=== PATIENT | male | born 1975 | race Caucasian/White ===

== ENCOUNTER 2022-01-20 01:46 | Outpatient (CLI) | payer MEDICAID, SELFPAY ==
--- NOTE | 2022-01-20 06:45 | DI.CT_ITS ---
Exam(s) CT CHEST WO EXAM: CT CHEST WO CLINICAL HISTORY: f/u pulmonary nodules,r91.8. TECHNIQUE: Multi planar reconstructions were performed. CONTRAST MATERIAL: None COMPARISON: CT CT CHEST WO CONTRAST from 09/02/2019performed at [facility] FINDINGS: CHEST: LUNGS: In the right lung the previously described subpleural peripherally partially calcified nodular density remains unchanged. There are no new right lung focal findings nor pleural effusion. In the opposite-left lung previously described peripheral small nodule in the anterior basal segment of the left lower lobe is also unchanged. There are no new focal left lung nodules. No infiltrates. No pleural effusions. MEDIASTINUM: There is no obvious hilar nor mediastinal adenopathy. Visualized thyroid unremarkable.A few shotty axillary lymph nodes are again noted, largest measuring 9 millimeters x 9 millimeters in t he left axilla, unchanged. No gross lymphadenopathy. CARDIAC: Heart size is normal. There is no pericardial effusion.Caliber of the thoracic aorta is wit hin normal limits. VISUALIZED UPPER ABDOMEN:Somewhat atrophic appearing left kidney which contains multiple calculi. Ple ase note that only part of the left kidney is included in the field of view. There may be mild hydron ephrosis of this kidney. No obvious abnormality in the partially visualized right kidney. Small nodul ar densities are again noted at the genu of both adrenal glands, unchanged and probably adenomas. OSSEOUS: No significant osseous lesions.. IMPRESSION: 1. Stable appearance of the previously described 2 nodules, 1 in each lung. No new nodule in either l saulo field and no pleural effusions nor intrathoracic adenopathy. 2. Atrophic appearing (partially included) left kidney which contains multiple calculi. The infundibu lum of this kidney as well as the renal pelvis appear prominent therefore cannot exclude the possibly that there is a calculus in the left ureter. The partially included opposite-right kidney does not c ontain calculi. 3. Small bilateral adrenal nodules again noted. These are probably adenomas. RADIATION DOSE DELIVERED: 432.1mGy.cm Total DLP DATA REPOSITORY: All CT scans at this facility are submitted to the National Radiology Data Registry (NRDR) Dose Index Registry (DIR) with the [employer] ([employer]). RADIATION OPTIMIZATION: All CT scans at this facility use at least one of these dose optimization te chniques: automated exposure control; mA and/or kV adjustment per patient size (includes targeted exa ms where dose is matched to clinical indication); or iterative reconstruction.
== END 2022-01-20 02:06 ==
PROVIDERS: PCP Physician Assistant Medical; Visit Provider Student in an Organized Health Care Education/Training Program
DX: R91.8 Other nonspecific abnormal finding of lung field (principal); N20.0 Calculus of kidney
CPT/HCPCS: 71250

== ENCOUNTER → 2022-04-21 15:13 | Outpatient (CLI) | payer MEDICAID, SELFPAY ==
--- OUTSIDE RECORDS SUMMARY | 2022-04-21 15:15 | XMS_ITS ---
:1975 Author Care Team Providers Name Role Phone KRISTA VAZ Primary Care Provider [phone] Allergies Code Code System Name Reaction Severity Status Onset NKDA ? Medications Name Status Start Date Stop Date ? ? amoxicillin 875 mg-potassium clavulanate 125 mg tablet Completed ? 02/27/2022 Take 1 tablet every 12 hours by oral route for 7 days. azithromycin 250 mg tablet Completed ? 04/18 TAKE 2 TABLETS (500 MG) BY ORAL ROUTE O NCE DAILY FOR 1 DAY THEN 1 TABLET (250 MG) BY ORAL ROUTE ONCE DAILY FOR 4 DAYS Antibiotic for bronchitis benzonatate 200 mg capsule Completed ? 12/05 Take 1 capsule 3 times a day by oral route as directed for 5 da ys. meloxicam 15 mg tablet Completed ? 2 Take 1 tablet every day by oral route as needed for 30 days. For shoulder pain. Do not take with ibuprofen or other NSAID. omeprazole 40 mg capsule,delayed release Active ? Not available Take 1 capsule every day by oral route as needed for 30 days. Acid reflux prednisone 10 mg tablet Completed ? 04/18/20 21 Take 5 tablets day 1, 4 tabs day 2, 3 tabs day 3, 2 tabs day 4, 1 tab day 5. Steroid for asthma exacerbation ProAir HFA 90 mcg/actuation aerosol inhaler Active ? Not available Inhale 2 puffs every 4-6 hours by inhalation route as directed for 30 days. Rescue inhaler Symbicort 160 mcg-4.5 mcg/actuation HFA aerosol inhaler Active ? Not available Inhale 1 puff twice a day by inhalation route for 30 days. Zyrtec 10 mg tablet Active ? Not availabl e Take 1 tablet every day by oral route. Problems Name Status Onset Date Source ? Dizziness Unknown 01/29/2019 ? Multiple Nodules of Lung Active 08/25/2019 ? Hemorrhoids Active 09/15/2019 ? Leukocytosis Unknown 05/28/2020 ? Leukopenia Active 06/04/2020 ? Prediabetes Active 06/04/2020 ? Pain of Right Shoulder Joint Active 04/18/2021 ? Gastroesophageal Reflux Disease without Esophagitis Active 03/08/2022 ? Early Satiety Active 03/08/2022 ? Abdominal Pain Active 03/08/2022 ? Muscular Dystrophy Active ? History Asthma Active ? History Unilateral Inguinal Hernia Active ? Histo ry Cholecystitis Unknown ? History Dilatation of Ureter Active ? History Right Upper Quadrant Pain Unknown ? Histor y Adult Health Examination Unknown ? History Radiology Result Abnormal Unknown ? Histor y Procedure by Method Unknown ? History SNOMED CT Concept Unknown ? History Procedures Date Name Performed by ? 01/15/2018 Cholecystectomy Information not avai lable Notes: laparascopic 11/12/1992 Foot Surgery Information not avai lable 06/12/2018 CT, Chest, W/o Contrast [facility] spital Radiology (Internal) [address] [place] [address] (Work Place) 08/26/2019 CT, Chest, [facility] [address] [place] [address] (Work Place) 04/27/2020 Electrocardiogram P_nc [facility] Ne [facility]port [address] [place] [address] (Work Place) 04/18/2021 XR, Shoulder, [address] [facility] Radiology (Internal) [address] [place] [address] (Work Place) 03/08/2022 NM, Gastric Emptying Scan Xray [facility] [address] [place], [place] [address] (Work Place) Results Lab Results Date Name Specimen Result Interpretation Description Value Range Status Address ? 01/20/2022 SARS CoV 2 RNA SWAB ? Covid-19 negative negativ e Final [facility] (COVID-19), RT-PCR Hospi toña Lab QL, occupational physician-PCR, [facility] (Int ernal): Respiratory Result [address] Spec[address] Zaire Ibanez ort ? ? SWAB ? Performing sammy ? Final [facility] Lab [address] [facility] [address] ab [facility] lab (Visitor Services Technician al): [address] 12/14/2021 Noninvasive Stool ? Cologuard negative negative Final Exact Colorectal Result Scienc es Cancer DNA + Reportable Laboratories Occult Blood (Col oguard Screening, QL, Or ders Only): Stool [address] , [place] 12/05/2021 CBC W/ Auto BLD Low Wbc 4.8 5.0-10.0 Final [facility] Diff 10*3/uL 10*3/uL Hospital Lab (Internal) : [address] ? ? BLD ? Rbc 5.03 4.60-6.00 Final [facility] ountry 10*6/uL 10*6/uL Hospital Lab (Internal) : [address] ? ? BLD ? Hgb 15.8 g/dL 14.0-18.0 Final [place] g/dL Hospital L ab (Internal) : [address] ? ? BLD ? Hct 46.1 % 41.0-51.0 Final [facility] Hospital L ab (Internal) : [address] ? ? BLD ? Mcv 91.7 fL 80.0-96.0 Final [facility] fL Hospital L ab (Internal) : [address] ? ? BLD ? Mch 31.4 pg 26.0-32.0 Final [facility] pg Hospital L ab (Internal) : [address], [place] ? ? BLD ? Mchc 34.3 g/dL 31.0-35.0 Final [facility] Country g/dL Hospital L ab (Internal) : [address] ? ? BLD ? Rdw 11.9 % 11.5-14.5 Final [facility] ount % Hospital L ab (Internal) : [address] ? ? BLD ? Plt 195 130-450 Final [facility] ntry 10*3/uL 10*3/uL Hospital Lab (Internal) : [address] ? ? BLD ? Anc 2.21 ? Final [facility] try 10*3/uL Hospital Lab (Internal) : [address] ? ? BLD ? Nlr 1.23 0.00-3.20 Final [facility] Hospital L ab (Internal) : [address] ? ? BLD ? Neutro 45.7 % 40.0-75.0 Final [facility] % Hospital L ab (Internal) : [address] ? ? BLD ? Lymph 37.0 % 20.0-50.0 Final [facility] Hospital L ab (Internal) : [address] ? ? BLD ? Boundary 9.7 % 2.0-10.0 % Final [facility] Hospital L ab (Internal) : [address] ? ? BLD High Eos 6.6 % 1.0-6.0 % Final [facility] L ab (Internal) : [address] ? ? BLD ? Baso 0.8 % 0.0-1.0 % Final [facility] L ab (Internal) : [address] ? ? BLD ? Ig 0.2 % 0.0-0.9 % Final [facility] Hospital L ab (Internal) : [address] 12/05/2021 CMP, Serum or S ? g/r 92 mg/dL 74-106 Winsome l [place] Plasma mg/dL Hospital L ab (Internal) : [address] ? ? S ? Bun 14 mg/dL 7-18 mg/dL Final [facility] L ab (Internal) : [address] ? ? S Low Crea 0.4 mg/dL 0.7-1.3 Final [place] mg/dL Hospital L ab (Internal) : [address] ? ? S ? Ca 9.5 mg/dL 8.5-10.1 Final [place] mg/dL Hospital L ab (Internal) : [address] ? ? S ? Na 141 136-145 Final [place] mmol/L mmol/L Hospital L ab (Internal) : [address] ? ? S ? K 4.4 3.5-5.1 Final [place] mmol/L mmol/L Hospital L ab (Internal) : [address] ? ? S ? Cl 103 98-107 Final [place] try mmol/l mmol/l Hospital L ab (Internal) : [address] ? ? S ? Tco2 31.6 21.0-32.0 Final [facility] ountry mmol/L mmol/L Hospital L ab (Internal) : [address] ? ? S ? Tp 7.3 g/dL 6.4-8.2 Final [facility] ountry g/dL Hospital L ab (Internal) : [address] ? ? S ? Alb 3.8 g/dL 3.4-5.0 Final [facility] ountry g/dL Hospital L ab (Internal) : [address] ? ? S ? Tbil 0.60 0.20-1.00 Final [facility] ount mg/dL mg/dL Hospital L ab (Internal) : [address] ? ? S ? Alp 98 U/L 50-136 U/L Final [facility] Hospital L ab (Internal) : [address] ? ? S ? Alt (Sgpt) 59 U/L 16-63 U/L [facility] Hospital L ab (Internal) : [address] ? ? S ? Ast (Sgot) 36 U/L 15-37 U/L [facility] Hospital L ab (Internal) : [address] 12/05/2021 Lipase, Serum S ? Lip 189 U/L 73-393 U/L F inal [facility] or Plasma Hospita l Lab (Internal) : [address] 12/05/2021 Urinalysis, UR ? UA-color yellow pale Final [facility] Dipstick, yellow Hospita l Lab Reflex Micro (Int ernal): [address] ? ? UR ? UA-appear clear clear Final [facility] Hospital L ab (Internal) : [address] ? ? UR ? UA-spec 1.020 1.003-1.03 Final [facility] Grav 5 Hospital L ab (Internal) : [address] ? ? UR ? UA-pH 6.5 [pH] 4.6-8.0 Final [facility] ount [pH] Hospital L ab (Internal) : [address] ? ? UR ? UA-leuk negative negative Final [facility] Hospital L ab (Internal) : [address] ? ? UR ? UA-nitrite negative negative Final N orth [facility] L ab (Internal) : [address] ? ? UR ? UA-prot negative negative Final [facility] L ab (Internal) : [address] ? ? UR ? UA-gluc negative negative Final [facility] L ab (Internal) : [address] ? ? UR ? UA-ketone negative negative Final No rth [facility] L ab (Internal) : [address] ? ? UR ? UA-urobil normal normal Final [facility] ab (Internal) : [address] ? ? UR ? UA-bili negative negative [facility] [address] ? ? UR ? UA-blood negative negative Final [facility] ab (Internal) : [address] 12/05/2021 HbA1C BLD ? Ha1C 4.9 % 4.0-6.0 % Final [facility] (Hemoglobin Hospi toña Lab a1C), Blood (Inte rnal): [address] 01/17/2021 SARS CoV 2 RNA SWAB ? Covid-19 negative negativ e Final [facility] (COVID-19), [facility] Hospi toña Lab QL, occupational physician-PCR, Result (Int ernal): Respiratory [address]t ? ? SWAB ? Performing panther ? Final Nort [facility] Lab [facility] lab Hospita l Lab (Internal) : [address] 06/08/2020 CBC W/ Auto BLD Low Wbc 4.1 5.0-10.0 Final [facility] Diff 10*3/uL 10*3/uL Hospital Lab (Internal) : [address] ? ? BLD ? Rbc 4.87 4.60-6.00 [facility] ountry 10*6/uL 10*6/uL Hospital Lab (Internal) : [address] ? ? BLD ? Hgb 16.0 g/dL 14.0-18.0 Final [facility] h Country g/dL Hospital L ab (Internal) : [address] ? ? BLD ? Hct 46.2 % 41.0-51.0 Final [facility] ount % Hospital L ab (Internal) : [address] ? ? BLD ? Mcv 94.9 fL 80.0-96.0 Final [facility] fL Hospital L ab (Internal) : [address] ? ? BLD High Mch 32.9 pg 26.0-32.0 Final [facility] pg Hospital L ab (Internal) : [address] ? ? BLD ? Mchc 34.6 g/dL 31.0-35.0 Final [facility] Country g/dL Hospital L ab (Internal) : [address] ? ? BLD ? Rdw 11.5 % 11.5-14.5 Final [facility] Hospital L ab (Internal) : [address] ? ? BLD ? Plt 182 130-450 Final [facility] ntry 10*3/uL 10*3/uL Hospital Lab (Internal) : [address] ? ? BLD ? Anc 1.85 ? Final [facility] try 10*3/uL Hospital Lab (Internal) : [address] ? ? BLD ? Nlr 1.19 0.00-3.20 Final [facility] Hospital L ab (Internal) : [address] ? ? BLD ? Neutro 45.5 % 40.0-75.0 Final [facility] Hospital L ab (Internal) : [address] ? ? BLD ? Lymph 38.2 % 20.0-50.0 Final [facility] Hospital L ab (Internal) : [address] ? ? BLD ? Boundary 7.6 % 2.0-10.0 % Final [facility] Hospital L ab (Internal) : [address] ? ? BLD High Eos 7.8 % 1.0-6.0 % Final [facility] Hospital L ab (Internal) : [address] ? ? BLD ? Baso 0.7 % 0.0-1.0 % Final [facility] L ab (Internal) : [address] ? ? BLD ? Ig 0.2 % 0.0-0.9 % Final [facility] L ab (Internal) : [address] 06/08/2020 Pathology BLD ? Smear see ? Final [facility] Country Review, Smear Review comment Ho spital Lab (Internal) : [address] 06/03/2020 CBC W/ Auto BLD Low Wbc 3.5 5.0-10.0 Final [facility] Diff 10*3/uL 10*3/uL Hospital Lab (Internal) : [address] ? ? BLD ? Rbc 4.76 4.60-6.00 [facility]uL Hospital Lab (Internal) : [address] ? ? BLD ? Hgb 15.7 g/dL 14.0-18.0 Final [facility] g/dL Hospital L ab (Internal) : [address] ? ? BLD ? Hct 44.2 % 41.0-51.0 Final [facility] Hospital L ab (Internal) : [address] ? ? BLD ? Mcv 92.9 fL 80.0-96.0 Final [facility] fL Hospital L ab (Internal) : [address] ? ? BLD High Mch 33.0 pg 26.0-32.0 Final [facility] pg Hospital L ab (Internal) : [address] ? ? BLD High Mchc 35.5 g/dL 31.0-35.0 Final [facility] g/dL Hospital L ab (Internal) : [address] ? ? BLD Low Rdw 11.4 % 11.5-14.5 Final [facility] Hospital L ab (Internal) : [address] ? ? BLD ? Plt 163 130-450 Final [facility] ntry 10*3/uL 10*3/uL Hospital Lab (Internal) : [address] ? ? BLD ? Anc 1.42 ? Final [facility] try 10*3/uL Hospital Lab (Internal) : [address] ? ? BLD ? Nlr 0.96 0.00-3.20 Final [facility] L ab (Internal) : [address] ? ? BLD ? Neutro 40.3 % 40.0-75.0 Final [facility] Hospital L ab (Internal) : [address] ? ? BLD ? Lymph 41.9 % 20.0-50.0 Final [facility] Hospital L ab (Internal) : [address] ? ? BLD ? Boundary 8.8 % 2.0-10.0 % Final [facility] Hospital L ab (Internal) : [address] ? ? BLD High Eos 7.9 % 1.0-6.0 % Final [facility] L ab (Internal) : [address] ? ? BLD ? Baso 0.8 % 0.0-1.0 % Final [facility] L ab (Internal) : [address] ? ? BLD ? Ig 0.3 % 0.0-0.9 % Final [facility] L ab (Internal) : [address] 06/03/2020 Hepatic S ? Tbil 0.5 mg/dL 0.2-1.3 Final [facility] Country Function mg/dL Hospital Lab Panel, Serum (Int ernal): [address] ? ? S ? Dbil 0.1 mg/dL 0.0-0.3 Final [facility] mg/dL Hospital L ab (Internal) : [address] ? ? S ? Alp 105 U/L 50-136 U/L Final [facility] Hospital L ab (Internal) : [address] ? ? S ? Alt (Sgpt) 45 U/L 21-72 U/L Final No rth [facility] Hospital L ab (Internal) : [address] ? ? S ? Ast (Sgot) 51 U/L 17-59 U/L Final [facility]th [facility] Hospital L ab (Internal) : [address] ? ? S High Ggt 91 U/L 15-73 U/L Final [facility] Hospital L ab (Internal) : [address] ? ? S ? Tp 7.3 g/dL 6.3-8.2 Final [facility] ountry g/dL Hospital L ab (Internal) : [address] ? ? S ? Alb 4.1 g/dL 3.5-5.0 Final [facility] ountry g/dL Hospital L ab (Internal) : [address] elizabeth 06/03/2020 HbA1C BLD ? Ha1C <5.0 % 4.0-6.0 % Final [place] (Hemoglobin Hospi toña Lab a1C), Blood (Inte rnal): [address] 06/03/2020 Glucose S ? F Gluc, S 95 mg/dL 74-106 Final [facility] Tolerance mg/dL Hospita l Lab Test, (Internal) : Post-glucola, [address] t ? ? S High 30 Min 163 mg/dL 70-140 Final [facility] gluc,S mg/dL Hospital L ab (Internal) : [address] ? ? S High 1 hr 205 mg/dL 70-140 Final [facility] ountry gluc,S mg/dL Hospital L ab (Internal) : [address] ? ? S High 2 hr 156 mg/dL 70-140 Final [facility] ountry gluc,S mg/dL Hospital L ab (Internal) : [address] 06/03/2020 Celiac Disease S ? Immunoglob 114 mg/dL 61 - 356 Final [facility] Comprehensive ulin a mg/dL Hos pital Lab Panel, Serum (IgA), S (I nternal): [address] ? ? S ? Dq Alpha 1 01,01:02 not Final [place] applicable Hospit al Lab (Internal) : [address] ? ? S ? Dq Beta 1 05:01,06: not Final [place] 02 applicable Hospit al Lab (Internal) : [address] ? ? S ? Celiac no ? Final [facility] ntry Gene Pairs Hospit al Lab Present? (Interna l): [address] ? ? S ? Celiac see below ? Final [facility] Disease Hospital Lab Interpretat (Inte rnal): ion [address] 06/03/2020 Tissue S ? Tissue <1.2 U/mL <4.0 Final No rth [facility] Transglutamina Transglutam (negative) Hospital Lab se IgA Ab, inase Ab, U/mL (In ternal): Quantitative, IgA, S [address] 04/28/2020 CBC W/ Auto BLD Low Wbc 4.7 5.0-10.0 Final [facility] Diff 10*3/uL 10*3/uL Hospital Lab (Internal) : [address] ? ? BLD ? Rbc 4.98 4.60-6.00 Final [facility] ountry 10*6/uL 10*6/uL Hospital Lab (Internal) : [address] ? ? BLD ? Hgb 16.3 g/dL 14.0-18.0 Final [facility] g/dL Hospital L ab (Internal) : [address] ? ? BLD ? Hct 47.0 % 41.0-51.0 Final [facility] Hospital L ab (Internal) : [address] ? ? BLD ? Mcv 94.4 fL 80.0-96.0 Final [facility] fL Hospital L ab (Internal) : [address] ? ? BLD High Mch 32.7 pg 26.0-32.0 Final [facility] pg Hospital L ab (Internal) : [address] ? ? BLD ? Mchc 34.7 g/dL 31.0-35.0 Final [facility] Country g/dL Hospital L ab (Internal) : [address] ? ? BLD Low Rdw 11.4 % 11.5-14.5 Final [facility] ountry % Hospital L ab (Internal) : [address] ? ? BLD ? Plt 197 130-450 Final [facility] ntry 10*3/uL 10*3/uL Hospital Lab (Internal) : [address] ? ? BLD ? Anc 2.20 ? Final [place] [facility] try 10*3/uL Hospital Lab (Internal) : [address] ? ? BLD ? Nlr 1.31 0.00-3.20 Final [facility] L ab (Internal) : [address] ? ? BLD ? Neutro 47.4 % 40.0-75.0 Final [facility] Hospital L ab (Internal) : [address] ? ? BLD ? Lymph 36.1 % 20.0-50.0 Final [facility] Hospital L ab (Internal) : [address] ? ? BLD ? Boundary 9.2 % 2.0-10.0 % Final [facility] L ab (Internal) : [address] ? ? BLD High Eos 6.5 % 1.0-6.0 % Final [facility] L ab (Internal) : [address] ? ? BLD ? Baso 0.6 % 0.0-1.0 % Final [facility] L ab (Internal) : [address] ? ? BLD ? Ig 0.2 % 0.0-0.9 % Final [facility] L ab (Internal) : [address] 04/28/2020 Amylase, Serum S ? Diana 97 U/L 30-110 U/L F inal [facility] or Plasma Hospita l Lab (Internal) : [address] 04/28/2020 CMP, Serum or S ? g/r 92 mg/dL 74-106 [place] [facility] Plasma mg/dL Hospital L ab (Internal) : [address] ? ? S ? Bun 16 mg/dL 9-20 mg/dL Final [facility] Hospital L ab (Internal) : [address] ? ? S Low Crea 0.50 0.66-1.25 Final [facility] mg/dL mg/dL Hospital L ab (Internal) : [address] ? ? S ? Ca 9.3 mg/dL 8.4-10.2 Final [place] mg/dL Hospital L ab (Internal) : [address] ? ? S ? Na 138 137-145 Final [place] mmol/L mmol/L Hospital L ab (Internal) : [address] ? ? S ? K 3.9 3.5-5.1 Final [place] mmol/L mmol/L Hospital L ab (Internal) : [address] ? ? S ? Cl 99 mmol/L 98-107 Final [facility] ountry mmol/L Hospital L ab (Internal) : [address] ? ? S ? Tco2 29.0 22.0-30.0 Final [facility] ountry mmol/L mmol/L Hospital L ab (Internal) : [address] ? ? S ? Tp 7.6 g/dL 6.3-8.2 Final [facility] ountry g/dL Hospital L ab (Internal) : [address] ? ? S ? Alb 4.2 g/dL 3.5-5.0 Final [facility] ountry g/dL Hospital L ab (Internal) : [address] ? ? S ? Tbil 1.1 mg/dL 0.2-1.3 Final [place] mg/dL Hospital L ab (Internal) : [address] ? ? S ? Alp 89 U/L 50-136 U/L Final [facility] Hospital L ab (Internal) : [address] ? ? S ? Alt (Sgpt) 61 U/L 21-72 U/L Final No rt [facility] Hospital L ab (Internal) : [address] ? ? S High Ast (Sgot) 60 U/L 17-59 U/L [facility] Hospital L ab (Internal) : [address] 04/28/2020 Lipid Panel, S ? Chol 181 mg/dL 50-200 [place] Serum mg/dL Hospital L ab (Internal) : [address] ? ? S ? Trig 99 mg/dL 10-150 Final [place] mg/dL Hospital L ab (Internal) : [address] ? ? S ? Hdl 54 mg/dL 40-60 Final [place] mg/dL Hospital L ab (Internal) : [address] ? ? S ? Ldl 107 mg/dL 0-130 Final [facility] ountry mg/dL Hospital L ab (Internal) : [address] 04/28/2020 Lipase, Serum S ? Lip 98 U/L 23-300 U/L Fi [facility] or Plasma Hospita l Lab (Internal) : [address] 04/28/2020 Electrocardiog ? Rate & NSR ? ? P_nc Primary mary Rhythm Care [facility] rt: [address] [facility] ? ? ? Qrs ? ? ? P_nc Prima ry Care [facility] rt: [facility] ? ? ? [place] ? ? ? P_nc Prima ry Interval Care [facility] port: [address] [facility] ? ? ? QRS ? ? ? P_nc Prima ry Duration Care [facility]: [address] [facility] ? ? ? QT ? ? ? P_nc Prima ry Interval Care [facility]: [address] [facility] 01/16/2018 Pathology TISS ? Report results ? Final N orth [place] Study below Hospital L ab (Internal) : [address] 08/29/2017 Venipuncture BLD ? Venpn* ? ? Final [facility] Hospital L ab (Internal) : [address] 08/29/2017 Lipid Panel, S ? Chol 178 mg/dL 50-200 [place] [facility] Serum mg/dL Hospital L ab (Internal) : [address] ? ? S ? Trig 118 mg/dL 10-150 Final [facility] ountry mg/dL Hospital L ab (Internal) : [address] ? ? S ? Hdl 47 mg/dL 40-60 Final [place] mg/dL Hospital L ab (Internal) : [address] ? ? S ? Ldl 107 mg/dL 0-130 Final [facility] ountry mg/dL Hospital L ab (Internal) : [address] 08/29/2017 CBC W/ Auto BLD ? Wbc 5.2 5.0-10.0 Final [facility] Diff 10*3/uL 10*3/uL Hospital Lab (Internal) : [address] ? ? BLD ? Rbc 4.94 4.60-6.00 Final [facility] ountry 10*6/uL 10*6/uL Hospital Lab (Internal) : [address] ? ? BLD ? Hgb 15.4 g/dL 14.0-18.0 Final [facility] h Country g/dL Hospital L ab (Internal) : [address] ? ? BLD ? Hct 44.7 % 41.0-51.0 Final [facility] ount % Hospital L ab (Internal) : [address] ? ? BLD ? Mcv 90.5 fL 80.0-96.0 Final [facility] fL Hospital L ab (Internal) : [address] ? ? BLD ? Mch 31.2 pg 26.0-32.0 Final [facility] pg Hospital L ab (Internal) : [address] ? ? BLD ? Mchc 34.5 g/dL 31.0-35.0 Final [facility] Country g/dL Hospital L ab (Internal) : [address] ? ? BLD ? Rdw 11.8 % 11.5-14.5 Final [facility] ountry % Hospital L ab (Internal) : [address] ? ? BLD ? Plt 196 130-450 Final [place] [facility] 10*3/uL 10*3/uL Hospital Lab (Internal) : [address] ? ? BLD ? Anc 3.03 ? Final [place] [facility] 10*3/uL Hospital Lab (Internal) : [address] ? ? BLD ? Neutro 57.8 % 40.0-75.0 Final [facility] % Hospital L ab (Internal) : [address] ? ? BLD ? Lymph 27.0 % 20.0-50.0 Final [facility] ount % Hospital L ab (Internal) : [address] ? ? BLD ? Boundary 9.6 % 2.0-10.0 % Final [facility] Hospital L ab (Internal) : [address] ? ? BLD ? Eos 5.0 % 1.0-6.0 % Final [facility] L ab (Internal) : [address] ? ? BLD ? Baso 0.4 % 0.0-1.0 % Final [facility] L ab (Internal) : [address] ? ? BLD ? Ig 0.2 % 0.0-0.9 % Final [facility] L ab (Internal) : [address] t 08/29/2017 CMP, Serum or S ? g/r 91 mg/dL 74-106 [place] l [facility] Plasma mg/dL Hospital L ab (Internal) : [address] ? ? S ? Bun 11 mg/dL 9-20 mg/dL Final [facility] Hospital L ab (Internal) : [address] ? ? S Low Crea 0.50 0.66-1.25 Final [facility] ountry mg/dL mg/dL Hospital L ab (Internal) : [address] ? ? S ? Ca 9.0 mg/dL 8.4-10.2 Final [facility] mg/dL Hospital L ab (Internal) : [address] ? ? S ? Na 139 137-145 Final [facility] ntry mmol/L mmol/L Hospital L ab (Internal) : [address] ? ? S ? K 3.7 3.5-5.1 Final [facility] ntry mmol/L mmol/L Hospital L ab (Internal) : [address] ? ? S ? Cl 101 98-107 Final [place] [facility] mmol/L mmol/L Hospital L ab (Internal) : [address] ? ? S ? Tco2 28.0 22.0-30.0 Final [facility] ountry mmol/L mmol/L Hospital L ab (Internal) : [address] ? ? S ? Tp 7.3 g/dL 6.3-8.2 Final [facility] ountry g/dL Hospital L ab (Internal) : [address] ? ? S ? Alb 4.3 g/dL 3.5-5.0 Final [facility] ountry g/dL Hospital L ab (Internal) : [address] ? ? S ? Tbil 0.8 mg/dL 0.2-1.3 Final [facility] mg/dL Hospital L ab (Internal) : [address] ? ? S ? Alp 87 U/L 50-136 U/L Final [facility] L ab (Internal) : [address] ? ? S ? Alt (Sgpt) 43 U/L 21-72 U/L Final No rth [facility] Hospital L ab (Internal) : [address] ? ? S ? Ast (Sgot) 40 U/L 17-59 U/L [facility] : [address] Past Encounters 03/08/2022 Abdominal Pain; Gastroesophageal Reflux Disease without Esophagitis; Early Satiety JODEE Awad: [address] [place] [phone], Ph. 02/02/2022 Acute Exacerbation of Asthma; Acute Sinu sitis Kat Hahn MD: [address] [place] [phone], Ph. 12/05/2021 Abdominal Pain; Prediabetes JODEE Awad: [address] [place] [phone], Ph. 06/06/2021 Pain of Right Shoulder Joint; Muscular D ystrophy JODEE Awad: [address] [place] [phone], Ph. 04/18/2021 Pain of Right Shoulder Joint; Administra tion of Viral Vaccine JODEE Awad: [address] [place] [phone], Ph. 01/19/2021 Acute Exacerbation of Asthma; Asthma; Mu ltiple Nodules of Lung JODEE Awad: [address] [place] [phone], Ph. Social History Tobacco Smoking Status Never Smoker Vaccine List Vaccine Type COVID-19, mRNA, LNP-S, PF, 100 mcg/0.5 m L dose (Moderna) 02/01/2021?100 mcg 03/01/2021?100 mcg influenza, injectable, quadrivalent, pre servative free 08/28/2017?0.5 mL 09/10/2020?0.5 mL pneumococcal polysaccharide PPV23 05/28/2020?0.5 mL Tdap 08/28/2017?0.5 mL zoster recombinant 04/18/2021?0.5 mL 04/18/2021?0.5 mL Plan of Care Reminders Provider Appointments None recorded. ? ? Lab None recorded. ? ? Referral None recorded. ? ? Procedures None recorded. ? ? Surgeries None recorded. ? ? Imaging None recorded. ? ? Vitals 03/08/2022 09:20AM Acute 40 Height Weight BMI Blood Pressure 165.1 cm 75.98 kg 27.9 kg/m2 110/82 mm[Hg] 02/02/2022 02:40PM Acute 20 Height Weight BMI Blood Pressure 165.1 cm 76.11 kg 27.9 kg/m2 114/80 mm[Hg] 12/05/2021 02:20PM Acute 40 Height Weight BMI Blood Pressure 165.1 cm 74.93 kg 27.5 kg/m2 120/80 mm[Hg] 06/06/2021 09:20AM Follow Up 20 Height Weight BMI Blood Pressure 165.1 cm 73.03 kg 26.8 kg/m2 122/78 mm[Hg] 04/18/2021 12:40PM Acute 20 Height Weight BMI Blood Pressure 165.1 cm 72.6 kg 26.6 kg/m2 132/80 mm[Hg] 01/19/2021 01:00PM Acute 40 Height Weight BMI Blood Pressure 165.1 cm 71.47 kg 26.2 kg/m2 120/80 mm[Hg] 09/10/2020 04:00PM Nurse 20 Height 165.1 cm 06/08/2020 09:40AM Follow Up 20 Height Weight BMI Blood Pressure 165.1 cm 73.21 kg 26.9 kg/m2 110/62 mm[Hg] 05/28/2020 02:00PM Office JANIE 40 Height Weight BMI Blood Pressure 165.1 cm 74.64 kg 27.4 kg/m2 126/84 mm[Hg] 04/27/2020 12:40PM Acute 40 Height Weight BMI Blood Pressure 165.1 cm 73.53 kg 27 kg/m2 122/82 mm[Hg] 12/30/2019 03:40PM Acute 20 Height Weight BMI Blood Pressure 165.1 cm 75.39 kg 27.7 kg/m2 122/68 mm[Hg] 12/16/2019 01:20PM Acute 20 Height Weight BMI Blood Pressure 165.1 cm 73.98 kg 27.1 kg/m2 112/74 mm[Hg] 09/15/2019 08:20AM Acute 20 Height Weight BMI Blood Pressure 165.1 cm 75.75 kg 27.8 kg/m2 112/82 mm[Hg] 08/25/2019 10:20AM Same Day 20 Height Weight BMI Blood Pressure 165.1 cm 74.47 kg 27.3 kg/m2 118/80 mm[Hg] 01/29/2019 01:40PM Acute 20 Height Weight BMI Blood Pressure 165.1 cm 76.52 kg 28.1 kg/m2 120/92 mm[Hg] 01/23/2018 Height Weight Blood Pressure 165.1 cm 75.07 kg 130/78 mm[Hg] 01/03/2018 Height Weight Blood Pressure 165.1 cm 74.84 kg 130/80 mm[Hg] 11/14/2017 Height Weight Blood Pressure 165.1 cm 74.84 kg 130/80 mm[Hg] 08/28/2017 Height Weight Blood Pressure 165.1 cm 71.21 kg 136/84 mm[Hg]
--- OUTSIDE RECORDS SUMMARY | 2022-04-21 15:15 | XMS_ITS | Encounter Summary ---
:1975 Author Care Team Providers Name Role Phone Bhupendra Rao Primary Care Provider [phone] Reason for Visit reflux/GERD; abdominal distention Assessment and Plan 1. Abdominal pain 03/08/2022: Worsening intermittent Sx. E linh satiety, GERD with vomiting. RUQ bloating. Hx Harris myopathy. Question gastroparesis. Refer [facility] gen surg. Request EGD and col onoscopy. Order NM gastric emptying study at [facility]. Refer GI at [facility]. Rx omeprazole 40 mg qd #30 x 1. Intermittent GI Sx in 46 y.o. man. Acid reflux with vomiting. Bloating RU Q. No trigger foods. Early satiety. Today I feel good My stools seem to b e black.- likely due to Pepto Bismol Frequent use Pepto Bismol, none last 10 days. Took otc Zantac x 3 tab. No PPI. Cologuard neg 12/14/2021 CBC, CMP 12/05/2021 essentially normal. l ipase normal 12/05/2021 Celiac cascade. ttg-Ab neg 06/03/2020 Cholecystectomy 02/04/2018. My acid refl ux went away after that 12/05/2021: Suspect IBS. Will check labs. cbc, cmp, lipase, UA cascade. Hx pre- diabetes, check A1c. Reviewed low FODMAP diet, given Upperglade handout. Will contact Mr. Russell with results and plan of care. ? art dealer referral - 03/08/20 22: Worsening intermittent Sx. Early satiety, GERD with vomiting. RUQ bloating. Hx Bet hlehem myopathy. Question gastroparesis. Refer [facility] gen surg. Request EGD and colo noscopy. Order NM gastric emptying study at [facility]. Refer GI at [facility]. Rx omeprazole 40 mg qd #30 x 1. Intermittent GI Sx in 46 y.o. man. Acid reflux with vomiting. Bloati ng RUQ. No trigger foods. Early satiety. Today I feel good My stools seem to b e black.- likely due to Pepto Bismol Frequent use Pepto Bismol, none last 10 days. Took otc Zantac x 3 tab. No PPI. Cologuard neg 12/14/2021 CBC, CMP essentially normal. lipase normal 12/05/2021 Celiac cascade. ttg-Ab neg 06/03/2020 Cho lecystectomy 02/04/2018. My acid reflux went away after that 2. Gastroesophageal reflux disease with out esophagitis 03/08/2022: Worsening intermittent Sx. E linh satiety, GERD with vomiting. RUQ bloating. Hx Harris myopathy. Question gastroparesis. Refer [facility] gen surg. Request EGD and col onoscopy. Order NM gastric emptying study at [facility]. Refer GI at [facility]. Rx omeprazole 40 mg qd #30 x 1. Intermittent GI Sx in 46 y.o. man. Acid reflux with vomiting. Bloating RU Q. No trigger foods. Early satiety. Today I feel good My stools seem to b e black.- likely due to Pepto Bismol Frequent use Pepto Bismol, none last 10 days. Took otc Zantac x 3 tab. No PPI. Cologuard neg 12/14/2021 CBC, CMP 12/05/2021 essentially normal. l ipase normal 12/05/2021 Celiac cascade. ttg-Ab neg 06/03/2020 Cholecystectomy 02/04/2018. My acid refl ux went away after that ? omeprazole 40 mg capsule,delayed rele ase 3. Early satiety 03/08/2022: Worsening intermittent Sx. E linh satiety, GERD with vomiting. RUQ bloating. Hx Harris myopathy. Question gastroparesis. Refer [facility] gen surg. Request EGD and col onoscopy. Order NM gastric emptying study at [facility]. Refer GI at [facility]. Rx omeprazole 40 mg qd #30 x 1. Intermittent GI Sx in 46 y.o. man. Acid reflux with vomiting. Bloating RU Q. No trigger foods. Early satiety. Today I feel good My stools seem to b e black.- likely due to Pepto Bismol Frequent use Pepto Bismol, none last 10 days. Took otc Zantac x 3 tab. No PPI. Cologuard neg 12/14/2021 CBC, CMP 12/05/2021 essentially normal. l ipase normal 12/05/2021 Celiac cascade. ttg-Ab neg 06/03/2020 Cholecystectomy 02/04/2018. My acid refl ux went away after that ? NM, gastric emptying scan - Early sat iety, GERD with vomiting. RUQ bloating. Hx Harris myopathy. Question gastropares is. Discussion Note: None recorded.Patient educational handouts: No information available. Plan of Care Reminders Provider Appointments None recorded. ? ? Lab None recorded. ? ? Referral Animal Anatomy Teacher Referral 03/08/2022 [facility] (Gastroenterolog y) Procedures None recorded. ? ? Surgeries None recorded. ? ? Imaging NM, Gastric Emptying Scan 03/08/2022 [facility] Xray Medications Name Start Date ? ? omeprazole 40 mg capsule,delayed release ? Take 1 capsule every day by oral route as needed for 30 days. Acid reflux ProAir HFA 90 mcg/actuation aerosol inhaler ? Inhale 2 puffs every 4-6 hours by inhalation route as directed for 30 days. Rescue inhaler Symbicort 160 mcg-4.5 mcg/actuation HFA aerosol inhale r ? Inhale 1 puff twice a day by inhalation route for 30 days. Zyrtec 10 mg tablet ? Take 1 tablet every day by oral route. Medications Administered None recorded. Vitals Height Weight BMI Blood Pressure 5 ft 5 in 167 lbs 8 oz 27.9 kg/m2 110/82 mm[Hg] Results Lab Results None recorded. Allergies Code Code System Name Reaction Severity Onset NKDA ? ? ? Problems Name Status Onset Date Source ? Multiple Nodules of Lung Active 08/25/2019 ? Hemorrhoids Active 09/15/2019 ? Leukopenia Active 06/04/2020 ? Prediabetes Active 06/04/2020 ? Pain of Right Shoulder Joint Active 04/18/2021 ? Gastroesophageal Reflux Disease without Esophagitis Active 03/08/2022 ? Early Satiety Active 03/08/2022 ? Abdominal Pain Active 03/08/2022 ? Muscular Dystrophy Active ? History Asthma Active ? History Unilateral Inguinal Hernia Active ? Histo ry Dilatation of Ureter Active ? History Procedures Date Name Performed by ? 01/15/2018 Cholecystectomy Information not avai labalicia Notes: laparascopic 11/12/1992 Foot Surgery Information not avai lable 03/08/2022 NM, Gastric Emptying Scan Xray [facility] [address] [place], [place] [address] (Work Place) Vaccine List Vaccine Type COVID-19, mRNA, LNP-S, PF, 100 mcg/0.5 m L dose (Moderna) 02/01/2021?100 mcg 03/01/2021?100 mcg influenza, injectable, quadrivalent, pre servative free 08/28/2017?0.5 mL 09/10/2020?0.5 mL pneumococcal polysaccharide PPV23 05/28/2020?0.5 mL Tdap 08/28/2017?0.5 mL zoster recombinant 04/18/2021?0.5 mL 04/18/2021?0.5 mL Social History Tobacco Smoking Status Never Smoker Are you currently employed? Y Are you blind or do you have N Notes: de creased vision, difficulty seeing? does wear glasses What is your code status? 0 How much tobacco do you chew? none What was the date of your most 04/18/2021 recent tobacco screening? Do you or have you ever used Never used electronic e-cigarettes or vape? cigarettes What is your exercise level? Occasional Live alone or with others? alone What is your level of alcohol Occasional Notes: 0 -3 drinks per consumption? week or less. Which of your hands is Right dominant? Animal exposure? Y Notes: cat, dog Do you or have you ever used Never used smokeless tobacco smokeless tobacco? Language Difficulties No Hard of hearing or deaf in one N or both ears? Are you passively exposed to N smoke? What is your level of caffeine Occasional Notes: once weekly consumption? 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 Past Encounters 03/08/2022 Abdominal Pain; Gastroesophageal Reflux Disease without Esophagitis; Early Satiety JODEE Awad: [address] [place] [phone], Ph. History of Present Illness ? Abdominal Distension Reported By: Patient Abdominal Distension: Location: RLQ, RUQ. Quality: bloating. Severity: moderate, worsening. Duration: 6 month s. Onset/Timing: no relation to meals, intermittent. Associa francisco Symptoms: vomiting Notes: <div>Patient reports that he feels like he can only eat a little of food because it fe els like he's overly bloated and that he feels full.</div> Note: <div>03/08/2022: Per patient case. pt called and said that he saw Bhupendra not that long ago and told him he's been having some stomach issues. pt says that the stuff he gave him is not working. He has a lot of bloating and acid reflux going on. He would like to try and be seen.</div><div>
</div><div>Provider note: Intermittent Sx.</div><div>Acid reflux with vomiting. Bloating RUQ. No trigger foods. Early satiety.</div><div>Today I feel good My stools seem to be black.- likely due to Pepto Bismol</div><div>Frequent use Pepto Bismol, none last 10 days.</div><div>Took otc Zantac x 3 tab. No PPI.</div><div>
</div><div> Cologuard neg 12/14/2021</div><div>CBC, CMP 12/05/2021 essentially normal. lipase normal 12/05/2021</div><div>Celiac cascade. ttg-Ab neg 06/03/2020</div>& lt;div>
</div><div>Cholecystectomy 02/04/2018. My acid reflux went away after that</div><div>
</div> Review of Systems ? Comprehensive General Adult ROS Reported By: Patient Constitutional: Constitutional: no chills, n o malaise; 03/08/2022 wt stable at 167 lb+10 lb from 01/19/2021 to 02/02/2022 Eyes: Eyes: no vision change ENMT: Mouth/Throat: no sore throat , no teeth problems Cardiovascular: Cardiovascular: no chest abdirahman n, no arm pain on exertion, no shortness of breath when wal will, no shortness of breath when lying down, no palpitations, no known heart murmur, no ankle swelling; complaint of inter mittent mid sternal chest pressure Respiratory: Respiratory: no cough, no wh eezing, no shortness of breath Gastrointestinal: Gastrointestinal: no nausea, no vomiting, no constipation, normal appetite, no diarrhea , not vomiting blood, abdominal pain, GERD; bloating Musculoskeletal: Musculoskeletal: no neck abdirahman n, muscle aches, muscle weakness, arthralgias/joint pain; Bushra lehem myopathy Integumentary: Skin: no rashes Neurologic: Neurologic: no numbness Hematologic/Lymphatic: Hematologic/Lymphatic no swo llen glands, no bruising, no excessive bleeding, no anemi a; Hx leukopenia- hematology w/u neg Physical Exam ? Notes: <p>General: Well-developed, well-nourished adult man in no acute distress. Hydration status normal.</p> <p>HEENT: Sclera and conjunctiva anicteric</p><p>Neck: Supple , AROM full, no meningeal signs. No lymphadenopathy, no JVD, no thyromegaly.</p><p>Chest: LCTA. No rales, no rhonchi, no wheeze. S1-S2. R RR. No murmur. No tenderness to palpation.</p><p>Abdomen: No rmal contour. Normal bowel sounds. Soft, nontender. No HSM. </p><p>Ly mphatics: No lymphadenopathy</p><p>Neuro: CN II-XII intact. No focal defi cit. Motor 5/5. Sensation intact to light touch.</p>
--- OUTSIDE RECORDS SUMMARY | 2022-04-21 15:15 | XMS_ITS | Encounter Summary ---
:1975 Author Care Team Providers Name Role Phone Bhupendra Rao Primary Care Provider [phone] Reason for Visit cough Assessment and Plan 1. Acute exacerbation of asthma Saturating wnl on RA, lungs CTA on exam with no wheezing. Will refill inhalers as pt has been doing well on symbicort BID wit h albuterol inhaler PRN. ? ProAir HFA 90 mcg/actuation aerosol i nhaler ? Symbicort 160 mcg-4.5 mcg/actuation H FA aerosol inhaler 2. Acute sinusitis Signs/symptoms consistent with acute si nusitis, in addition to allergies. Will treat w/ augmentin x 7 days, as well as encour aged to trial zyrtec to help w/ allergies. Worsening signs/symptoms discussed with pt and need for reevaluation. ? Zyrtec 10 mg tablet ? amoxicillin 875 mg-potassium clavulan ate 125 mg tablet Discussion Note: None recorded.Patient educational handouts: No information available. Plan of Care Reminders Provider Appointments None recorded. ? ? Lab None recorded. ? ? Referral None recorded. ? ? Procedures None recorded. ? ? Surgeries None recorded. ? ? Imaging None recorded. ? ? Medications Name Start Date ? ? omeprazole [...] Pressure 5 ft 5 in 167 lbs 12.8 oz 27.9 kg/m2 114/80 mm[Hg] Results Lab Results None recorded. Allergies [...] 11/12/1992 Foot Surgery Information not avai lable Vaccine List Vaccine Type COVID-19, mRNA, LNP-S, [...] once weekly consumption? 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 Past Encounters 02/02/2022 Acute Exacerbation of Asthma; Acute Sinu sitis Kat Hahn MD: [address] [place] [phone], Ph. History of Present Illness ? Cough Reported By: Patient HPI: Quality: productive. Severit y: moderate. Duration: acute (<3 weeks). Onset/Timing: gradual; has b een going on for more than 2 weeks , he cov[place] tested negative last w [place], is vaccinated and has had no new exposures. States sinus omega estion and postnasal drip are also an issue, is using symbicort and proai r with short term relief. Context: worse at night, history of asthma, hi story of bronchitis; patient states thinking this is likely an exacerbati on of his asthma. Modifying Factors: inhaler, worse in the cold. Associated Symptoms: no fever, no chills, no chest pain, no nausea, no vo miting, no edema, no wheezing, post nasal drip, shortness of breath, t hroat clearing, nasal discharge; Chest tightness Note: <div>Patient reports having post nasal drip a few weeks ago which has been worsening with resulting cough.</div>Review of Systems: ROS as noted in the HPI Review of Systems None recorded. Physical Exam ? Brief PE Reported By: Patient General: General Appearance: healthy- appearing, well-nourished, well-develop ed. Level of Distress: NAD Eyes, Ears, Nose, Mouth, Throat: Eyes PERRLA, extraocu lar movements intact. Oropharynx: moist mucous mem branes, no exudates, erythema. Nose: sinus tender ness, rhinorrhea: Neck: Neck: trachea midline, FROM Cardiovascular: Heart Auscultation: RRR, nor mal S1, normal S2, no murmurs, no rubs, no gallops . Extremities: no edema Lungs: Auscultation: clear, no whee zing, no rales/crackles, no rhonchi Abdomen: Bowel Sounds: normal. Inspec tion and Palpation: soft, non-distended, non-ten andrew Neurological: Orientation: to time, to anton ce, to person. Motor Strength and Tone: normal mo tor strength, normal tone. Sensation normal sensa tion Musculoskeletal: Joints, Bones, and Muscles: normal movement of all extremities Skin: Inspection and palpation: wa rm and dry Psychiatric: Affect appropriate
== END ==
PROVIDERS: PCP Physician Assistant Medical; Visit Provider Physician Assistant Medical